=== PATIENT | male | born 1995 | race Two or more races ===

== ENCOUNTER 2019-09-08 18:20 | Emergency (ER) | payer MEDICAID ==
[~2019-09-08] VITALS: Ht 177.8 cm; Wt 110.0 kg
[2019-09-08] MEDS ORDERED: KETOROLAC 60MG/2ML VIAL IM STA (19:17)
[2019-09-08 20:19] LABS: BASOPHILS % 0.7 % (0.0-2.0); HEMATOCRIT. 47.5 % (42.0-52.0); LYMPHOCYTES % 28.6 % (20.0-50.0); MEAN CORPUSCULAR HEMOGLOBIN 29.2 pg (28.0-32.0); MEAN CORPUSCULAR VOLUME 86.5 fL (80.0-94.0); MEAN PLATELET VOLUME 9.3 fl (7.4-10.4); NEUTROPHILS % 60.7 % (40.0-76.0); PLATELET 226 x1000/uL (130-400); RED CELL DISTRIBUTION WIDTH 13.6 % (11.6-14.6)
[2019-09-08 20:23] LABS: CHLORIDE 109 mEq/L (98-107)
[2019-09-08 20:24] LABS: CLARITY URINE CLEAR (CLEAR); COLOR URINE YELLOW (YELLOW); KETONES URINE NEGATIVE (NEGATIVE); LEUKOCYTE ESTERASE URINE NEGATIVE (NEGATIVE); NITRITE URINE NEGATIVE (NEGATIVE); OCCULT BLOOD URINE NEGATIVE (NEGATIVE); PH URINE 6.5 (4.5-8.0); PROTEIN URINE NEGATIVE (NEGATIVE); SPECIFIC GRAVITY URINE 1.021 (1.005-1.030)
[2019-09-08 21:53] VITALS: BP 131/74
== END 2019-09-08 21:54 | disposition home or self-care (01) ==
LOC: ER 18:20
DX: R19.7 Diarrhea, unspecified (principal); J02.9 Acute pharyngitis, unspecified; Z03.818 Encounter for observation for suspected exposure to other biological agents ruled out
CPT/HCPCS: 36415; 80053; 81003; 83690; 85025; 96372; 99283; C9803; J1885; U0003